=== PATIENT | female | born 1965 | race African-American/Black ===

== ENCOUNTER 2017-08-27 13:43 | Outpatient (CLI) | payer MEDICARE, MEDICAID ==
--- NOTE | 2017-08-27 16:36 | RAD ---
CHEST TWO VIEW 08/27/17 HISTORY: Dyspnea. COMPARISON: Chest one view 2014. FINDINGS: Lungs are clear. No pneumothorax or effusion. The cardiac silhouette and mediastinal contours are wi thin normal limits. No acute osseous abnormality. IMPRESSION: No acute intrathoracic abnormality. POS: [facility]
== END 2017-08-27 13:44 | disposition home or self-care (01) ==
LOC: RAD 13:43
PROVIDERS: ATTEND Internal Medicine Pulmonary Disease
DX: R06.00 Dyspnea, unspecified (principal)
CPT/HCPCS: 71020